=== PATIENT | female | born 1960 | race African-American/Black ===

== ENCOUNTER 2024-12-24 08:39 | Outpatient (CLI) | payer MEDICAID | END 2024-12-24 08:40 | disposition home or self-care (01) | LOC: CSHSLEEP 08:39 | PROVIDERS: ATTEND Family Medicine | DX: G47.33 Obstructive sleep apnea (adult) (pediatric) (principal); R53.83 Other fatigue; G25.89 Other specified extrapyramidal and movement disorders; E11.9 Type 2 diabetes mellitus without complications; G47.00 Insomnia, unspecified; G47.10 Hypersomnia, unspecified; I10 Essential (primary) hypertension | CPT/HCPCS: 95800 ==